=== PATIENT | female | born 1980 | race African-American/Black ===

== ENCOUNTER 2018-11-09 17:00 | Emergency (ER) | payer MEDICAID, OTHER ==
[~2018-11-09] VITALS: Ht 167.6 cm; Wt 136.0 kg
[2018-11-09] MEDS ORDERED: famotidine/PF 10 mg/ml inj IV ONE (18:55)
[2018-11-09] MEDS ORDERED: metoclopramide 5 mg/ml inj IM ONE (18:55)
[2018-11-09] MEDS ORDERED: sucralfate 1 gm tablet PO ONE (18:55)
[2018-11-09] MEDS ORDERED: mag hydrox/Alum hydrox/simeth 30ml oral suspension PO ONE (18:55)
[2018-11-09] MEDS ORDERED: LIDOcaine Viscous 15ml cup PO ONE (18:55)
[2018-11-09 19:10] LABS: BASOPHILS % (AUTO) 0.2 % (0-1); EOSINOPHILS # (AUTO) 0.2 X10'3 (0-0.9); EOSINOPHILS % (AUTO) 1.3 % (0-6); HEMATOCRIT 39.9 % (35.0-45.0); HEMOGLOBIN 12.6 g/dl (12.0-16.0); LYMPHOCYTES # (AUTO) 2.5 X10'3 (1.1-4.8); LYMPHOCYTES % (AUTO) 17.9 % (21-51); MEAN CORPUSCULAR HEMOGLOBIN 22.9 PG (27.0-31.0); MEAN CORPUSCULAR HGB CONC 31.5 g/dL (33.0-36.5); MEAN CORPUSCULAR VOLUME 72.6 FL (78-98); MEAN PLATELET VOLUME 9.4 FL (7.4-10.4); MONOCYTES # (AUTO) 0.7 X10'3 (0-0.9); MONOCYTES % (AUTO) 5.2 % (2-12); NEUTROPHILS # (AUTO) 10.4 X10'3 (1.8-7.7); NEUTROPHILS % (AUTO) 75.4 % (42-75); PLATELET COUNT 338 X10'3 (140-440); RED CELL DISTRIBUTION WIDTH 18.8 % (11.5-14.5); WHITE BLOOD COUNT 13.8 X10'3 (4.5-11.0)
[2018-11-09 19:24] LABS: ALANINE AMINOTRANSFERASE 81 U/L (12-78); ALBUMIN 4.2 G/DL (3.4-5.0); ALBUMIN/GLOBULIN RATIO 0.9 (1.1-1.5); ALKALINE PHOSPHATASE 113 IU/L (46-116); ANION GAP 14 (8-16); ASPARTATE AMINO TRANSFERASE 67 U/L (10-37); BILIRUBIN,TOTAL 0.5 MG/DL (0.1-1.0); BLOOD UREA NITROGEN 10 MG/DL (7-18); BUN/CREATININE RATIO 11.1 (6.6-38.0); CALCIUM 9.3 MG/DL (8.5-10.1); CHLORIDE 98 MMOL/L (99-107); GLUCOSE 96 MG/DL (70-104); POTASSIUM 3.7 MMOL/L (3.5-5.1); SODIUM 137 MMOL/L (135-145); TOTAL CARBON DIOXIDE 24.8 MMOL/L (24-32); eGFR 70 ML/MIN
[2018-11-09 19:33] LABS: PARTIAL THROMBOPLASTIN TIME 26 SECONDS (22-32); PROTHROMBIN TIME 10.6 SECONDS (9.0-12.0)
[2018-11-09] MEDS ORDERED: PANT-47 PO (19:47)
[2018-11-09 20:05] VITALS: BP 158/103
== END 2018-11-09 20:06 | disposition home or self-care (01) ==
LOC: ER 17:02
DX: K29.60 Other gastritis without bleeding (principal); R10.13 Epigastric pain; Z79.899 Other long term (current) drug therapy
CPT/HCPCS: 36415; 71045; 80053; 84484; 85025; 85610; 85730; 93005; 96374; 99284; J2765; J3490